=== PATIENT | male | born 1980 | race African-American/Black ===

== ENCOUNTER 2024-08-15 16:57 | Emergency (ER) | payer OTHER ==
[2024-08-15] MEDS ORDERED: ACETAMINOPHEN 325 MG TABLET (FP) ONE (17:54)
[2024-08-15] MEDS ORDERED: METOCLOPRAMIDE HCL 10 MG TABLET (FP) PO ONE (17:54)
[2024-08-15] MEDS: PSEUDOEPHEDRINE HCL 30 MG TABLET PO ONE (18:00)
[2024-08-15] MEDS: METOCLOPRAMIDE HCL 10 MG TABLET (FP) PO ONE (18:00)
[2024-08-15] MEDS: ACETAMINOPHEN 325 MG TABLET (FP) PO ONE (18:00)
[2024-08-15 18:08] LABS: BASO % 0.7 % (0-2.0); EOS % 2.1 % (0-4.5); HEMATOCRIT 50.7 % (35.4-49); HEMOGLOBIN 16.5 GM/dL (11.7-16.9); LYMPH % 16.6 % (8-40); MCH 26.4 pg (25.7-33.7); MCHC 32.5 g/dl (32.0-35.9); MEAN CELL VOLUME 81.1 fl (80-96); MEAN PLT VOLUME 6.7 fl (7.5-11.1); MONO % 16.1 % (3.8-10.2); NEUT % 64.5 % (42.8-82.8); PLATELET COUNT 226 10^3/uL (134-434); RBC 6.26 M/mm3 (4.00-5.60); RDW 13.6 % (11.9-15.9); WHITE BLOOD COUNT 4.1 K/mm3 (4.0-10.0)
[2024-08-15 18:09] VITALS: RESP 17; TEMP 98.7; BMI 26.7
[2024-08-15] MEDS: ACETAMINOPHEN 1000 MG/100 ML BAG IVPB ONE (18:30)
[2024-08-15] MEDS: METOCLOPRAMIDE HCL INJECTION 10 MG/2 ML VIAL IVPUSH ONE (18:30)
[2024-08-15] MEDS: ACETAMINOPHEN 500 MG TABLET (FP) PO ONE (18:30)
[2024-08-15] MEDS: SODIUM CHLORIDE 1,000 ML IV STA (18:30)
[2024-08-15 18:42] LABS: ALBUMIN 3.9 g/dl (3.4-5.0); CALCIUM 9.1 mg/dL (8.5-10.1)
[2024-08-15 18:43] LABS: BLOOD UREA NITROGEN 13.9 mg/dL (7-18); MAGNESIUM 2.3 mg/dL (1.8-2.4)
[2024-08-15 18:46] LABS: CREATININE 1.3 mg/dL (0.55-1.3)
[2024-08-15 18:48] LABS: BILIRUBIN,TOTAL 0.8 mg/dL (0.2-1); TOT PROT 7.2 g/dl (6.4-8.2)
[2024-08-15] MEDS ORDERED: IBUPROFEN 400 MG TABLET (FP) PO ONE (18:59)
[2024-08-15] MEDS: IBUPROFEN 400 MG TABLET (FP) PO ONE (19:02)
[2024-08-15 19:04] VITALS: BP 144/93; PULSE 73
== END 2024-08-15 20:56 | disposition home or self-care (01) ==
LOC: JER 16:57
DX: R51.9 Headache, unspecified (principal); R09.81 Nasal congestion; Z20.822 Contact with and (suspected) exposure to COVID-19
CPT/HCPCS: 0241U-QW; 36415; 70450-TC; 80053; 83735; 85025; 99284-25